=== PATIENT | female | born 1975 | race Caucasian/White ===

== ENCOUNTER 2020-09-17 21:07 | Emergency (ER) | payer SELFPAY ==
[~2020-09-17] VITALS: Ht 160 cm; Wt 67.0 kg
[2020-09-17 21:07] VITALS: BP 143/87
[2020-09-17] MEDS ORDERED: IPRATRPIUM/ALBUTEROL 0.5/2.5MG 3 ML NEBU. NEB ONE (21:30)
--- NOTE | 2020-09-17 21:53 | PHYS DOC ---
General Adult EDM: Chief Complaint: COUGH HPI: HPI: Patient is a 45-year-old female being seen in the ER for shortness of breath that started 1 week ago but worsened in the last hour. She is also reporting a nonproductive cough. Patient does have a history of asthma. She reports that she is out of her rescue inhaler and attempted to do a breathing treatment before arrival but reported that the nebulizer medications were . Patient is requesting to be discharged home with a rescue inhaler, albuterol nebulizer solution. Patient denies fevers, sore throat, sick exposures, chest pain. She is not hypoxic at this time. (DAVIAN BAILEY APRN) Review of Systems: Review of Systems: 14 body systems of the review of systems have been reviewed. See HPI for pert inent positive and negative responses, otherwise all other systems are negative, nonpertinent or noncontributory (DAVIAN BAILEY APRN) Current Medications: Current Meds: Current Medications Medications (Trade) Dose Ordered Sig/Mabel Start Time Stop Time Status Last Admin Dose Admin Albuterol/ Ipratropium (Duoneb) 3 ml 1X ONCE 09/17/20 21:30 09/17/20 21:31 (DAVIAN BAILEY APRN) Allergies: Allergies: Allergies Coded Allergies Type Severity Reaction Last Updated Verified No Known Drug Allergies 09/17/20 No (DAVIAN BAILEY APRN) Physical Exam: PE: Constitutional: Well developed, well nourished, no acute distress, non-toxic appearance. [] HENT: Normocephalic, atraumatic, bilateral external ears normal, oropharynx moist, no oral exudates, nose normal, patient is maintaining secretions, no oropharyngeal swelling.. [] Eyes: PERRL, conjunctiva normal, no discharge. [] Neck: Normal range of motion,no stridor. [] Cardiovascular:Heart rate regular rhythm, no murmur [] Lungs & Thorax: Wheezing noted throughout lung hull Skin: Warm, dry, no erythema, no rash. [] Back: Normal range of motion Extremities: No tenderness, no cyanosis, no clubbing, ROM intact, no edema. [] Neurologic: Alert and oriented X 3, normal motor function, normal sensory function, no focal deficits noted. [] Psychologic: Affect normal, judgement normal, mood normal. [] (DAVIAN BAILEY APRN) EKG: EKG: [] (DAVIAN BAILEY APRN) Radiology/Procedures: Radiology/Procedures: [] (DAVIAN BAILEY APRN) Heart Score: C/O Chest Pain: No Risk Factors: Risk Factors: DM, Current or recent (<one month) smoker, HTN, HLP, family history of CAD, obesity. Risk Scores: Score 0 - 3: 2.5% MACE over next 6 weeks - Discharge Home Score 4 - 6: 20.3% MACE over next 6 weeks - Admit for Clinical Observation Score 7 - 10: 72.7% MACE over next 6 weeks - Early Invasive Strategies (DAVIAN BAILEY APRN) Course & Med Decision Making: Course & Med Decision Making Pertinent Labs and Imaging studies reviewed. (See chart for details) Patient is a 45-year-old female being seen in the ER today for shortness of breath. She attributes this to her asthma. Patient does not have albuterol inhaler or breathing treatment supplies at home. Patient was given a breathing treatment but reports that she still feels short of breath and wheezing still noted. An IV was started, blood work obtained, and patient was given Solu-Med rol and a continuous nebulizer treatment. Chest x-ray ordered. 2220: Case discussed with supervising physician, care transferred to Dr. Bermeo at this time. (DAVIAN BAILEY APRN) Course & Med Decision Making The patient had a 1 hour continuous albuterol treatment. She still has some wheezing bilaterally, but feels much better. She would prefer to go home versus admission. I will discharge her with an albuterol inhaler with proper spacer as well as a prescription for the same and a prescription for DuoNeb nebulizer treatments. I will also give the patient 3 more days of prednisone. She is st able for discharge at this time. (JOVANA BERMEO DO) Dragon Disclaimer: Dragon Disclaimer: This electronic medical record was generated, in whole or in part, using a voice recognition dictation system. (DAVIAN BAILEY APRN) Attending Co-Sign The patient was seen and interviewed as well as examined at the bedside. The chart was reviewed. The case was discussed. Agree with the plan of care. (JOVANA BERMEO DO) Departure Departure: Impression: Primary Impression: Asthma Qualified Codes: J45.21 - Mild intermittent asthma with (acute) exacerbation Disposition: HOME / SELF CARE / HOMELESS Condition: IMPROVED Referrals: PCP,NO (PCP) Patient Instructions: Asthma Attacks, Prevention, Asthma, Adult, Ujah-ue-Peej Scripts Ipratropium/Albuterol Sulfate (DUONEB 0.5-3(2.5) MG/3 ML) 3 Ml Ampul.neb 3 ML NEB BID PRN for WHEEZING, #1 BOX Prov: JOVANA BERMEO DO 09/18/20 Prednisone (PREDNISONE) 50 Mg Tablet 1 TAB PO DAILY for asthma for 3 Days, #3 TAB Prov: JOVANA BERMEO DO 09/18/20 Albuterol Sulfate (VENTOLIN HFA INHALER) 18 Gm Hfa.aer.ad 1-2 PUFF IH PRN Q4HRS PRN for FOR ASTHMA, #1 EACH 1 Refill Generic substitution of albuterol sulfate is authorized Prov: JOVANA BERMEO DO 09/18/20 DAVIAN BAILEY PUBLIC ADDRESS SYSTEM INSTALLER Sep 17, 2020 21:53 JOVANA BERMEO DO Sep 18, 2020 00:09
[2020-09-17] MEDS ORDERED: ALBUTEROL SULFATE 2.5 MG/3 ML NEBU. ONE (21:58)
[2020-09-17] MEDS ORDERED: methylPREDNISolone SOD SUCC PF 125 MG/2 ML VIAL. IV ONE (22:00)
[2020-09-17] MEDS ORDERED: methylPREDNISolone SOD SUCC PF 125 MG/2 ML VIAL. ONE (22:14)
[2020-09-17 23:04] LABS: BASO # 0.1 x10^3/uL (0.0-0.2); BASO % 1 % (0-3); EOS # 0.5 x10^3/uL (0.0-0.7); EOS % 7 % (0-3); HEMATOCRIT 35.2 % (36.0-47.0); LYMPH # 2.9 x10^3/uL (1.0-4.8); LYMPH % 46 % (24-48); MEAN CORPUSCULAR HEMOGLOBIN 33 pg (25-35); MEAN CORPUSCULAR HGB CONC 34 g/dL (31-37); MEAN CORPUSCULAR VOLUME 96 fL (79-100); MONO # 0.5 x10^3/uL (0.0-1.1); MONO % 8 % (0-9); NEUT # 2.5 x10^3uL (1.8-7.7); NEUT % 38 % (31-73); PLATELET COUNT 157 x10^3/uL (140-400); RED BLOOD COUNT 3.66 x10^6/uL (3.50-5.40); RED CELL DISTRIBUTION WIDTH 13.1 % (11.5-14.5); WHITE BLOOD COUNT 6.4 x10^3/uL (4.0-11.0)
[2020-09-17 23:16] LABS: ANION GAP 8 (6-14); BLOOD UREA NITROGEN 12 mg/dL (7-20); CALCIUM 8.5 mg/dL (8.5-10.1); CARBON DIOXIDE 27 mmol/L (21-32); CHLORIDE 108 mmol/L (98-107); CREATININE 0.9 mg/dL (0.6-1.0); GFR 68.3; GLUCOSE 104 mg/dL (70-99); SODIUM 143 mmol/L (136-145)
--- NOTE | 2020-09-17 23:49 | RAD ---
INDICATION: Reason: soa / Spl. Instructions: / History: COMPARISON: None. FINDINGS: 2 view of chest obtained. No definite focal airspace consolidation. Mild scoliotic curvature the spine. Cardiac silhouette is unremarkable. Degenerative changes spine IMPRESSION: * No focal airspace consolidation or edema. Electronically signed by: West Rob MD (09/17/2020 11:47 PM) [id number]
[2020-09-18] MEDS ORDERED: PRED50TA PO (00:09)
[2020-09-18] MEDS ORDERED: IPRA3AMP29 NEB (00:09)
[2020-09-18] MEDS ORDERED: ALBU2.5V8 IH (00:09)
[2020-09-18] MEDS ORDERED: ALBUTEROL SULFATE 8GM INHALER. INH ONE (00:15)
== END 2020-09-18 00:27 | disposition home or self-care (01) ==
LOC: ER 21:07
DX: J45.21 Mild intermittent asthma with (acute) exacerbation (principal)
CPT/HCPCS: 36415; 71046; 80048; 85025; 94640; 94644; 96374; 99285; J2930; 94664

== ENCOUNTER 2021-01-13 14:13 | Emergency (ER) | payer OTHER ==
[~2021-01-13] VITALS: Ht 160 cm; Wt 73.6 kg
[~2021-01-13 14:13] MED LIST: ALBU2.5V8 IH; IPRA3AMP29 NEB; PRED50TA PO
--- NOTE | 2021-01-13 14:21 | PHYS DOC ---
Past History Past Surgical History: Appendectomy Alcohol Use: None Adult General HPI HPI Patient is a 45-year-old female presenting for asthma exacerbation. This is an acute on chronic issue for her. She has longstanding history of asthma but has never been hospitalized or intubated for it. She reports prior episodes were usually precipitated by tobacco smoke but reports recent exposure to cold and change in seasons caused her symptoms to start. Reports she has had increased wheezing for past several days. She has been without insurance and ran out of DuoNeb nebulized treatments and so she has been using exclusively albuterol inhaler without significant relief in symptoms. She took several hits of her albuterol inhaler today without significant relief and wheezing prompting her to come in for evaluation. She does not smoke anymore. She denies any other significant medical abnormalities, takes no other medications on a daily basis Review of Systems Review of Systems Fourteen body systems of review of systems have been reviewed. See HPI for pertinent positives and negative responses, other ladd all other systems are negative, non-pertinent or non-contributory Allergies Allergies Allergies Coded Allergies Type Severity Reaction Last Updated Verified No Known Drug Allergies 09/17/20 No Physical Exam Physical Exam Constitutional: Well developed, age-appropriate, appears to be in moderate distress and exhibiting increased work of breathing but is ambulatory and nontoxic in overall appearance HENT: Normocephalic, atraumatic, bilateral external ears normal, oropharynx moist, no oral exudates, nose normal. Eyes: PERRLA, EOMI, conjunctiva normal, no discharge. Neck: Normal range of motion, no tenderness, supple, no stridor. Cardiovascular: Heart rate regular, sinus rhythm, no murmurs rubs or gallops Lungs & Thorax: Patient not hypoxic but displays increased work of breathing and struggling to breathe, patient has poor air excursion globally with audible end expiratory wheezes even without auscultation, there is accessory muscle use and neck noted Abdomen: Bowel sounds normal, soft, no tenderness, no masses, no pulsatile masses. Nonsurgical abdomen, no peritoneal signs Skin: Warm, dry, no erythema, no rash. Back: No tenderness, no CVA tenderness. Extremities: No tenderness, no cyanosis, no clubbing, ROM intact, no edema. Neurologic: Alert and oriented X 3, grossly normal motor & sensory function, no focal deficits noted. Psychologic: Affect normal, judgement normal, mood normal. Current Patient Data Vital Signs Vital Signs Date Time Temp Pulse Resp B/P (MAP) Pulse Ox O2 Delivery O2 Flow Rate FiO2 01/13/21 14:23 97.5 80 24 129/89 (102) 98 Room Air Vital Signs Date Time Temp Pulse Resp B/P (MAP) Pulse Ox O2 Delivery O2 Flow Rate FiO2 01/13/21 14:41 97 Room Air 01/13/21 14:23 97.5 80 24 129/89 (102) Lab Results Current Medications Medications (Trade) Dose Ordered Sig/Mabel Route PRN Reason Start Time Stop Time Status Last Admin Dose Admin Albuterol/ Ipratropium (Duoneb) 3 ml 1X ONCE NEB 01/13/21 14:30 01/13/21 14:31 DC 01/13/21 14:31 Prednisone (Prednisone) 60 mg 1X ONCE PO 01/13/21 14:30 01/13/21 14:31 DC 01/13/21 14:32 EKG EKG EKG ordered and interpreted by myself 1441 and sinus rhythm at 73 bpm, unremarkable intervals, no axis deviation, no acute ischemic findings, no STEMI Radiology/Procedures Radiology/Procedures INDICATION: Reason: shob / Spl. Instructions: / History: COMPARISON: September 17, 2020 FINDINGS: Single view of chest obtained. Mild elevation of the right hemidiaphragm. Cardiac silhouette is similar to prior. Minimal haziness at lung bases without definite consolidation elsewhere in the lungs Mild scoliotic curvature the spine IMPRESSION: * Minimal haziness at lung bases most likely from atelectasis. No definite consolidation elsewhere in the lungs. Electronically signed by: West Rob MD (01/13/2021 2:49 PM) [id number] ] Heart Score C/O Chest Pain: No Risk Factors: Risk Factors: DM, Current or recent (<one month) smoker, HTN, HLP, family history of CAD, obesity. Risk Scores: Risk Factors: DM, Current or recent (<one month) smoker, HTN, HLP, family history of CAD, obesity. Course & Med Decision Making Course & Med Decision Making ABCs unremarkable HPI physical exam and comprehensive ER work-up nonconcerning for any emergent or surgical issues Discussed most likely diagnosis of acute exacerbation of asthma which improved with provided ER intervention that included DuoNeb administration and steroids Continued steroid burst recommended with close outpatient primary care follow-up for repeat PFTs and potential for pulmonary consultation She is just obtaining insurance and is likely a candidate for addition of a maintenance inhaler to her current medication regiment I did prescribe patient a new albuterol inhaler and nebulized solution today to ensure she has adequate supply to make it until her PCP follow-up Strict return precautions discussed and understood by patient, all questions and concerns addressed prior to ER departure Lelo Disclaimer Lelo Disclaimer This electronic medical record was generated, in whole or in part, using a voice recognition dictation system. Departure Departure: Impression: Primary Impression: Acute asthma exacerbation Additional Impression: Person under investigation for COVID-19 Disposition: HOME / SELF CARE / HOMELESS Condition: IMPROVED Referrals: PCP,LAURIE (PCP) Patient Instructions: Asthma Attacks, Prevention, Asthma, Adult Additional Instructions: You were seen for an asthma exacerbation. Your exacerbation was likely caused by a cold weather from and/or local allergies. You should be checking your peak flows daily and taking all of your controller and rescue inhalers as previously prescribed. Any new medications today, please take those as prescribed as well. It may take a few days for the steroids to begin to work, but use albuterol as needed for the next few days to help with symptoms. Return to the ED if you develop worsening cough, shortness of breath, fever > 101, chest pain, or any other new or concerning symptoms. You need to follow up with your primary care doctor as soon as possible as a severe asthma exacerbation can be fatal. Scripts Albuterol Sulfate (ALBUTEROL SULFATE NEB SOLN) 1.25 Mg/3 Ml Vial.neb 1 VIAL NEB Q6HRS for SHORTNESS OF BREATH, #150 ML Prov: SUNDAY OGDEN DO 01/13/21 Albuterol Sulfate (PROAIR HFA INHALER) 8.5 Gm Hfa.aer.ad 2 PUFF INH PRN Q6HRS PRN for SHORTNESS OF BREATH for 7 Days, #1 INHALER 0 Refills Prov: SUNDAY OGDEN DO 01/13/21 Prednisone (PREDNISONE) 50 Mg Tablet 1 TAB PO DAILY for ASTHMA EXACERBATION, #4 TAB Prov: SUNDAY OGDEN DO 01/13/21 Problem Qualifiers SUNDAY OGDEN DO Jan 13, 2021 14:21
[2021-01-13] MEDS ORDERED: predniSONE 20 MG TABLET PO ONE (14:30)
[2021-01-13] MEDS ORDERED: IPRATRPIUM/ALBUTEROL 0.5/2.5MG 3 ML NEBU. NEB ONE ×2 (14:30→15:15)
--- NOTE | 2021-01-13 14:52 | RAD ---
INDICATION: Reason: shob / Spl. Instructions: / History: COMPARISON: September 17, 2020 FINDINGS: Single view of chest obtained. Mild elevation of the right hemidiaphragm. Cardiac silhouette is similar to prior. Minimal haziness at lung bases without definite consolidation elsewhere in the lungs Mild scoliotic curvature the spine IMPRESSION: * Minimal haziness at lung bases most likely from atelectasis. No definite consolidation elsewhere i n the lungs. Electronically signed by: West Rob MD (01/13/2021 2:49 PM) [id number]
[2021-01-13] MEDS ORDERED: PRED50TA PO (15:28)
--- NOTE | 2021-01-13 15:43 | EKG ---
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
[2021-01-13 15:49] VITALS: BP 133/64
[2021-01-13] MEDS ORDERED: ALBU2.5V8 INH (15:55)
[2021-01-13] MEDS ORDERED: ALBU1.25 NEB (15:55)
== END 2021-01-13 15:53 | disposition home or self-care (01) ==
LOC: ER 14:13
DX: U07.1 COVID-19 (principal); J45.901 Unspecified asthma with (acute) exacerbation
CPT/HCPCS: 71045; 93005; 94640; 99285; C9803; J7512; U0003

== ENCOUNTER 2021-01-22 08:02 | Emergency (ER) | payer OTHER ==
[~2021-01-22] VITALS: Ht 160 cm; Wt 73.6 kg
[~2021-01-22 08:02] MED LIST changes: +ALBU1.25 NEB; +ALBU2.5V8 INH
--- NOTE | 2021-01-22 08:14 | PHYS DOC ---
Past History Past Medical History: Asthma Past Surgical History: Appendectomy Alcohol Use: None Adult General Chief Complaint Chief Complaint: COUGH HPI HPI Patient is a 45-year-old female presenting for cough. She has history of asthma for which she uses a rescue inhaler only. States she had a history of using a maintenance inhaler but unsure of what type, has been out of this for several months due to fact that she does not have insurance. States she has had URI symptoms for past 5 days that include subjective fever, chills, rhinorrhea, postnasal drip, nasal congestion and a dry nonproductive cough. She also admits increased wheezes. States she took a home COVID-19 test 48 hours ago that was positive and has been at home self quarantining ever since. She does admit she is unvaccinated against COVID-19. She has no other comorbid conditions, no other medications outside of rescue albuterol use as needed Review of Systems Review of Systems Fourteen body systems of review of systems have been reviewed. See HPI for pertinent positives and negative responses, other ladd all other systems are negative, non-pertinent or non-contributory Allergies Allergies Allergies Coded Allergies Type Severity Reaction Last Updated Verified No Known Drug Allergies 09/17/20 No Physical Exam Physical Exam General: Appears well, non toxic, and comfortable Skin: Warm, dry. Normal for ethnicity. HEENT: Atraumatic. PERRLA. Rhinorrhea and congestion. Nasal turbinates boggy b/l. Moist mucous membranes. Uvula midline. Maintaining secretions. No phonation changes. Neck: Trachea midline. Normal ROM. No stridor. Respiratory: Normal WOB. CTAB w/o w/r/r. No tachypnea. Cardiovascular: Regular rate and rhythm. Normal peripheral perfusion. Abdomen: Soft. Non tender. No distension. Back: Normal ROM. Musculoskeletal: No swelling or deformity. Neuro: Alert and oriented x 4. MAEE. Lymph: No cervical LAD. Psych: Normal affect and mood. Current Patient Data Vital Signs Vital Signs Date Time Temp Pulse Resp B/P (MAP) Pulse Ox O2 Delivery O2 Flow Rate FiO2 01/22/21 08:12 98.0 76 16 84/49 (61) 92 Room Air Vital Signs Date Time Temp Pulse Resp B/P (MAP) Pulse Ox O2 Delivery O2 Flow Rate FiO2 01/22/21 08:28 92 Room Air 01/22/21 08:12 98.0 76 16 84/49 (61) EKG EKG EKG ordered and interpreted by myself at 0839 hrs. as sinus rhythm at 76 bpm, unremarkable intervals, no axis deviation, no obvious ischemic findings, no STEMI Radiology/Procedures Radiology/Procedures EXAM: Chest, single view. HISTORY: Shortness of breath. COMPARISON: 01/13/2021. FINDINGS: A frontal view of the chest obtained. There is right upper lobe and bilateral lower lobe interstitial infiltrate. No pleural effusion or pneumothorax is seen. The heart is normal in size. IMPRESSION: Bilateral lower lobe predominant multifocal pneumonia. Follow-up to confirm resolution. Electronically signed by: Nhi Faustin MD (01/22/2021 8:46 AM) [id number] Heart Score C/O Chest Pain: No HEART Score for Chest Pain: HEART Score for Chest Pain Response (Comments) Value History Slighlty/Non-Suspicious 0 ECG Normal 0 Age < 45 0 Risk Factors No Risk Factors 0 Total 0 Risk Factors: Risk Factors: DM, Current or recent (<one month) smoker, HTN, HLP, family history of CAD, obesity. Risk Scores: Risk Factors: DM, Current or recent (<one month) smoker, HTN, HLP, family history of CAD, obesity. Course & Med Decision Making Course & Med Decision Making ABCs unremarkable HPI physical exam and comprehensive ER work-up nonconcerning for any emergent or surgical issues Patient has known Covid positive individual who is unvaccinated. Radiograph findings concerning for early developing pneumonia. I question etiology of presenting symptoms to favor symptomatic Covid versus legitimate acute exacerbation of asthma Breathing treatment and prednisone administered while in ER setting with total improvement in symptoms. Repeat evaluation showed patient with improved respiratory function and no wheezes Discussed various treatment plans with patient, joint decision was made to start azithromycin for pneumonia treatment in addition to prescribing budesonide inhaler for maintenance asthma therapy in addition to outpatient Covid therapy in a nonhypoxic individual Given patient's risk factors, strict return precautions were discussed and understanding was verbalized by patient, all questions and concerns addressed prior to ER departure home with continued self quarantine instructions and supportive care practices advised Lelo Disclaimer Lelo Disclaimer This electronic medical record was generated, in whole or in part, using a voice recognition dictation system. Departure Departure: Impression: Primary Impression: Pneumonia due to COVID-19 virus Disposition: HOME / SELF CARE / HOMELESS Condition: IMPROVED Referrals: PCP,LAURIE (PCP) Additional Instructions: You were seen for subjective fever, cough, body aches, and possible infection with COVID-19. Your physical exam was reassuring. Your chest x-ray was concerning for potential bibasilar pneumonia in setting of known COVID-19 inf ection. Joint decision was made to administer antibiotics and discharging home with continued use of an intracorticosteroid inhaler. In the meantime you need to quarantine yourself at home away from all other individuals, especially those who are elderly or have any other chronic health issues or an immunocompromised status. You should return to the ED if you develop worsening cough, shortness of breath, chest pain, or any other new or concerning symptoms. Alternate Tylenol and ibuprofen as needed for body aches and pain. You should make sure to drink plenty of fluids and get plenty of rest. Scripts Azithromycin (AZITHROMYCIN TABLET) 250 Mg Tablet 250 MG PO DAILY for ANTI-BIOTIC, #4 TAB 0 Refills Prov: SUNDAY OGDEN DO 01/22/21 Budesonide (BUDESONIDE) 0.5 Mg/2 Ml Ampul.neb 0.5 MG IH BID for shob, #1 EACH Prov: SUNDAY OGDEN DO 01/22/21 OGDEN DO Jan 22, 2021 08:14
[2021-01-22] MEDS ORDERED: BUDESONIDE 0.5 MG/2 ML NEBU ONE (08:23)
[2021-01-22] MEDS ORDERED: predniSONE 20 MG TABLET PO ONE (08:30)
[2021-01-22] MEDS ORDERED: IPRATRPIUM/ALBUTEROL 0.5/2.5MG 3 ML NEBU. NEB ONE (08:30)
--- NOTE | 2021-01-22 08:48 | RAD ---
EXAM: Chest, single view. HISTORY: Shortness of breath. COMPARISON: 01/13/2021. FINDINGS: A frontal view of the chest obtained. There is right upper lobe and bilateral lower lobe in terstitial infiltrate. No pleural effusion or pneumothorax is seen. The heart is normal in size. IMPRESSION: Bilateral lower lobe predominant multifocal pneumonia. Follow-up to confirm resolution. Electronically signed by: Nhi Faustin MD (01/22/2021 8:46 AM) [id number]
[2021-01-22] MEDS ORDERED: AZITHROMYCIN 250 MG TABLET. PO ONE (09:15)
[2021-01-22 09:54] VITALS: BP 117/79
[2021-01-22] MEDS ORDERED: BUDE0.5A11 IH (09:55)
[2021-01-22] MEDS ORDERED: AZIT250T6 PO (09:55)
--- NOTE | 2021-01-22 09:55 | EKG ---
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
== END 2021-01-22 10:08 | disposition home or self-care (01) ==
LOC: ER 08:02
DX: U07.1 COVID-19 (principal); J12.82 Pneumonia due to coronavirus disease 2019; J45.909 Unspecified asthma, uncomplicated
CPT/HCPCS: 71045; 93005; 94640; 99283; J7512; 99284